=== PATIENT | female | born 1985 | race Caucasian/White ===

== ENCOUNTER → 2017-04-06 | Outpatient (CLI) | payer OTHER ==
[~2017-04-06] MED LIST: ACYC800 PO; AZIT500 PO; BUPR100 PO; BUSP5 PO; CELE100 PO; CIPR250 PO; CITA20 PO; CODACE30 PO; CYCL10 PO; DOXY100; ERYT333ERA PO; Flonase 0.05% N16 GM; HYDACE5 PO; HYDGUAL120 PO; IBUP600 PO; IBUP800; INSUASPI SS; INSULANI SC; METF500; Monodox100 MG PO; Naprosyn500 MG PO; Novolog100 UNIT/2 SC; ONDA4ODT MM; OXYACE5T PO; PHENA100 PO; POLY17UD PO; Percocet 5-3251 EACH PO; RANI150 PO; ROXICODONE5 MG PO; RXHYDACE PO; RXPROM25 PO; RXSULTRIDS PO; SULTRIDS PO; TRAM50 PO; TYLENOL PM; UNKNOWN ANTIBIOTIC; Ventolin/Prove6.7 GM INH; Verotin-Gr Cap1 EACH PO
[2017-04-06 16:59] LABS: Specimen Source VAGINA
[2017-04-07 14:41] LABS: Source Vagina
== END | disposition home or self-care (01) ==
LOC: LAB 16:54
PROVIDERS: Obstetrics & Gynecology
DX: Z36.85 Encounter for antenatal screening for Streptococcus B (principal); O99.89 Other specified diseases and conditions complicating pregnancy, childbirth and the puerperium; R30.0 Dysuria; Z3A.35 35 weeks gestation of pregnancy
CPT/HCPCS: 87081; 87086; 87491; 87591; 87653

== ENCOUNTER → 2017-06-19 | Outpatient (CLI) | payer OTHER ==
[2017-06-19 12:51] LABS: BASOPHILS ABSOLUTE AUTO 0.02 K/mm3 (0.00-0.23); BASOPHILS PERCENT AUTO 0 % (0-2); EOSINOPHILS ABSOLUTE AUTO 0.08 K/mm3 (0.00-0.68); EOSINOPHILS PERCENT AUTO 1 % (0-6); Hematocrit 36.8 % (33.0-51.0); IMMATURE GRAN ABSOLUTE AUTO 0.04 K/mm3 (0.00-0.10); IMMATURE GRAN PERCENT AUTO 1 % (0-1); LYMPHOCYTES ABSOLUTE AUTO 1.44 K/mm3 (0.84-5.20); LYMPHOCYTES PERCENT AUTO 23 % (21-46); MONOCYTES ABSOLUTE AUTO 0.35 K/mm3 (0.16-1.47); MONOCYTES PERCENT AUTO 6 % (4-13); Mean Corpuscular HGB Conc 32.6 g/dL (31.5-36.5); Mean Corpuscular Volume 86 fL (80-100); Mean Platelet Volume 10.1 fL (9.1-12.4); NEUTROPHILS ABSOLUTE AUTO 4.48 K/mm3 (1.96-9.15); NEUTROPHILS PERCENT AUTO 70 % (41-73); Platelet Count 260 K/mm3 (150-400); RDW Coefficient Variation 14.8 % (11.7-14.2); RDW Standard Deviation 46.2 fL (35.1-46.3); Red Blood Cell Count 4.28 M/mm3 (3.80-5.20); White Blood Cell Count 6.41 K/mm3 (4.00-11.30)
[2017-06-19 13:05] LABS: Alanine Aminotransfer (ALT/SGP 713 U/L (12-78); Albumin, Blood 3.7 g/dL (3.4-5.0); Alk Phos 407 U/L (40-126); Anion Gap 10 mmol/L (6-16); Aspartate Aminotrans (AST/SGOT 476 U/L (12-37); Bilirubin, Total 2.8 mg/dL (0.1-1.0); Blood Urea Nitrogen 11 mg/dL (8-24); Bun/Creatinine Ratio 15.5 (12.0-20.0); CO2, Blood 25 mmol/L (21-32); Calcium, Blood 9.1 mg/dL (8.5-10.1); Chloride, Blood 104 mmol/L (98-108); Creatinine, Blood 0.71 mg/dL (0.40-1.00); Globulin, Blood 3.8 g/dL (2.2-4.0); Glomerular Filtration Rate >60 (60-); Glucose, Blood 108 mg/dL (70-99); Potassium, Blood 4.3 mmol/L (3.5-5.5); Sodium, Blood 139 mmol/L (136-145); Total Protein, Blood 7.5 g/dL (6.4-8.2)
[2017-06-21 05:49] LABS: HCV Non Reactive (NR)
== END ==
LOC: LAB SHORT 12:48
PROVIDERS: Physician Assistant
DX: R10.84 Generalized abdominal pain (principal); R74.8 Abnormal levels of other serum enzymes
CPT/HCPCS: 36415; 80053; 80074; 83690; 85025

== ENCOUNTER 2017-08-31 05:48 | Day surgery (SDC) | payer OTHER ==
[~2017-08-31] VITALS: Ht 167.6 cm; Wt 82.1 kg
== END 2017-08-31 22:50 | disposition home or self-care (01) ==
LOC: ORSCMMR 05:48 → ORD 07:30 → ORSCMMR 22:50
PROVIDERS: Surgery
PROC: 0FT44ZZ Resection of Gallbladder, Percutaneous Endoscopic Approach (ICD-10-PCS; principal; 2017-08-31 07:30)
DX: K80.10 Calculus of gallbladder with chronic cholecystitis without obstruction (principal); E10.9 Type 1 diabetes mellitus without complications; Z79.4 Long term (current) use of insulin; Z87.891 Personal history of nicotine dependence
CPT/HCPCS: 82947; 88304; J1885; J2250; J2405; J2710; J2765; J3010; J7030; J7120

== ENCOUNTER 2019-01-22 19:05 | Emergency (ER) | payer OTHER ==
[~2019-01-22] VITALS: Ht 167.6 cm; Wt 96.2 kg
[2019-01-22] MEDS ORDERED: TRIDERM28.4 GM TOP (21:05)
== END 2019-01-22 21:29 | disposition home or self-care (01) ==
LOC: ER 19:05
DX: G43.909 Migraine, unspecified, not intractable, without status migrainosus (principal); R21 Rash and other nonspecific skin eruption; E11.9 Type 2 diabetes mellitus without complications; Z79.891 Long term (current) use of opiate analgesic; Z88.0 Allergy status to penicillin; Z88.5 Allergy status to narcotic agent; Z79.4 Long term (current) use of insulin
CPT/HCPCS: 96374; 96375; 99282-25; J0780; J1200; J1885; J7030

== ENCOUNTER → 2021-08-19 | Outpatient (CLI) | payer OTHER ==
[~2021-08-19] MED LIST changes: +TRIDERM28.4 GM TOP
[2021-08-21 19:06] LABS: HPV 16 Negative (Negative); HPV 18 Negative (Negative); HPV OTHER HR TYPES Negative (Negative)
== END ==
LOC: LAB SHORT 13:13 → LAB 13:13
PROVIDERS: Physician Assistant Medical
DX: Z12.4 Encounter for screening for malignant neoplasm of cervix (principal)
CPT/HCPCS: 87624; G0145

== ENCOUNTER → 2023-06-06 | Outpatient (CLI) | payer OTHER | LOC: LAB SHORT 16:00 → LAB 16:00 | DX: R30.0 Dysuria (principal) | CPT/HCPCS: 87086 ==

== ENCOUNTER → 2023-06-09 | Outpatient (CLI) | payer OTHER | LOC: LAB SHORT 17:28 → LAB 17:28 | DX: R30.0 Dysuria (principal) | CPT/HCPCS: 87086 ==

== ENCOUNTER → 2024-05-25 | Outpatient (CLI) | payer OTHER ==
[2024-05-31 07:20] LABS: HPV HIGH RISK BY TMA Not Detected; HPV SOURCE Cervical/Vag
== END | disposition home or self-care (01) ==
LOC: LAB 13:26 → LAB SHORT 13:26
PROVIDERS: Obstetrics & Gynecology
DX: Z01.419 Encounter for gynecological examination (general) (routine) without abnormal findings (principal)
CPT/HCPCS: 87624; G0123